=== PATIENT | male | born 1955 | race Caucasian/White ===

== ENCOUNTER 2019-06-04 10:34 | Inpatient (IN) | payer MEDICARE, MEDICAID ==
[~2019-06-04] VITALS: Ht 170.2 cm; Wt 76.0 kg
[2019-06-04] MEDS ORDERED: pantoprazole IV 80 MG in normal saline 100ml IV soln 100 ML IV ONE (13:20)
[2019-06-04] MEDS: pantoprazole 40 MG vial IV SCH ×2 (14:00→14:09)
[2019-06-04 14:26] LABS: BASOPHILS # (AUTO) 0.1 X10'3 (0-0.2); BASOPHILS % (AUTO) 0.5 % (0-1); EOSINOPHILS % (AUTO) 0.1 % (0-6); HEMATOCRIT 31.6 % (42.0-52.0); HEMOGLOBIN 10.4 g/dl (14.0-17.9); LYMPHOCYTES # (AUTO) 0.9 X10'3 (1.1-4.8); LYMPHOCYTES % (AUTO) 7.9 % (21-51); MEAN CORPUSCULAR HEMOGLOBIN 28.3 PG (27.0-31.0); MEAN CORPUSCULAR HGB CONC 32.9 g/dL (33.0-36.5); MEAN CORPUSCULAR VOLUME 85.9 FL (78-98); MEAN PLATELET VOLUME 9.9 FL (7.4-10.4); MONOCYTES # (AUTO) 0.5 X10'3 (0-0.9); MONOCYTES % (AUTO) 4.2 % (2-12); NEUTROPHILS # (AUTO) 10.4 X10'3 (1.8-7.7); NEUTROPHILS % (AUTO) 87.3 % (42-75); PLATELET COUNT 116 X10'3 (140-440); RED BLOOD COUNT 3.68 X10'6 (4.70-6.10); RED CELL DISTRIBUTION WIDTH 19.1 % (11.5-14.5); WHITE BLOOD COUNT 11.9 X10'3 (4.5-11.0)
[2019-06-04 14:42] LABS: PARTIAL THROMBOPLASTIN TIME 26 SECONDS (22-32)
[2019-06-04 14:46] LABS: ALANINE AMINOTRANSFERASE 31 U/L (12-78); ALBUMIN 3.5 G/DL (3.4-5.0); ALKALINE PHOSPHATASE 77 IU/L (46-116); ANION GAP 9 (8-16); ASPARTATE AMINO TRANSFERASE 18 U/L (10-37); BILIRUBIN,DIRECT 0.2 MG/DL (0-0.3); BILIRUBIN,TOTAL 1.3 MG/DL (0.1-1.0); BLOOD UREA NITROGEN 34 MG/DL (7-18); CALCIUM 8.7 MG/DL (8.5-10.1); CHLORIDE 108 MMOL/L (99-107); CREATININE 0.85 MG/DL (0.60-1.10); GLUCOSE 192 MG/DL (70-104); POTASSIUM 4.3 MMOL/L (3.5-5.1); SODIUM 141 MMOL/L (135-145); TOTAL CARBON DIOXIDE 24.1 MMOL/L (24-32); TOTAL PROTEIN 6.9 G/DL (6.4-8.2); eGFR 90 ML/MIN
[2019-06-04] MEDS ORDERED: UMEC1DIS IH (14:47)
[2019-06-04] MEDS ORDERED: PANT40TA4 PO (14:47)
[2019-06-04] MEDS ORDERED: CARV6.253 PO (14:47)
[2019-06-04] MEDS ORDERED: SIMV-42 PO (14:47)
[2019-06-04] MEDS ORDERED: CYCL-1 PO (14:47)
[2019-06-04] MEDS ORDERED: DOCU-329 PO (14:47)
[2019-06-04 14:53] LABS: ANISOCYTOSIS 2+; PLATELET ESTIMATE DECREASED
[2019-06-04] MEDS ORDERED: ondansetron/PF 4mg/2ml inj IV ONE (15:00)
[2019-06-04 15:20] LABS: OCCULT BLOOD STOOL POSITIVE (Neg)
[2019-06-04 15:24] LABS: CLARITY,URINE CLEAR (Clear); COLOR,URINE YELLOW (Yellow); GLUCOSE, URINE NEGATIVE (Neg); KETONES,URINE TRACE mg/dl (Neg); LEUKOCYTE ESTERASE ,URINE NEGATIVE (Neg); NITRITES, URINE NEGATIVE (Neg); OCCULT BLOOD,URINE NEGATIVE (Neg); PH,URINE 5.5 (4.8-8.0); PROTEIN,URINE NEGATIVE (Neg); UROBILINOGEN,URINE 0.2 E.U/dL (0.2-1.0)
[2019-06-04 15:27] LABS: UA COLLECTION TYPE URINAL
[2019-06-04] MEDS: morphine 4 MG/ML inj SYRINge IV PRN ×2 (15:59→17:07)
[2019-06-04] MEDS ORDERED: pantoprazole 40MG/NS 100ML BAG 100 ML IV ONE (16:00)
[2019-06-04] MEDS ORDERED: morphine 2 MG/ML inj. syringe IV PRN (16:15)
[2019-06-04] MEDS ORDERED: mag hydrox/Alum hydrox/simeth 30ml oral suspension PO PRN (16:15)
[2019-06-04] MEDS ORDERED: ondansetron/PF 4mg/2ml inj IV PRN (16:15)
[2019-06-04] MEDS ORDERED: acetaminophen 325mg tablet PO PRN (16:15)
[2019-06-04] MEDS ORDERED: magnesium hydroxide 30ml (MOM) UD suspension PO PRN (16:15)
[2019-06-04] MEDS: normal saline 1000ml 1,000 ML IV SCH (17:07)
[2019-06-04] MEDS: octreotide inj. 1,250 MCG in normal saline 250ml IV soln 250 ML IV SCH (17:07)
[2019-06-04] MEDS ORDERED: cyclobenzaprine 10mg tablet PO PRN (18:25)
[2019-06-04] MEDS ORDERED: docusate sod 250mg capsule PO PRN (18:25)
[2019-06-04] MEDS ORDERED: ipratropium 0.5 MG/2.5ML nebule IH PRN (18:35)
[2019-06-04 20:30] VITALS: BP 151/82
[2019-06-04] MEDS: carvedilol 6.25mg tablet PO SCH (21:06)
[2019-06-04] MEDS: atorvastatin 10mg tablet PO SCH (21:06)
[2019-06-04] MEDS: morphine 2 MG/ML inj. syringe IV PRN (21:44)
[2019-06-04 22:00] VITALS: BP 100/61
--- NOTE | 2019-06-04 22:44 | NUR ---
Arrived@ 1999 on PCU 3012V. Patient is pleasant and in no apparent distress. A&Ox4 and vital signs stable 151/82 HR 93, 99F, RR 18, 98% on room air. Patient is oriented to the room. MRSA swab was taken and patient was educated on it. Placed on tele 51 and educated on monitoring. Questions were encouraged and answered.
--- NOTE | 2019-06-04 22:44 | NUR ---
Patient in room PCU 3016. I have received report from WILIAN Huerta from ER and had the opportunity to ask questions and assume patient care.
[2019-06-05] VITALS (10 sets, daily range): BP systolic 101–189; BP diastolic 37–95
[2019-06-05] MEDS: normal saline 1000ml 1,000 ML IV SCH (00:53)
[2019-06-05 01:56] LABS: BASOPHILS % (AUTO) 0.9 % (0-1); EOSINOPHILS # (AUTO) 0.1 X10'3 (0-0.9); EOSINOPHILS % (AUTO) 2.8 % (0-6); HEMATOCRIT 28.7 % (42.0-52.0); HEMOGLOBIN 9.6 g/dl (14.0-17.9); LYMPHOCYTES # (AUTO) 0.9 X10'3 (1.1-4.8); LYMPHOCYTES % (AUTO) 19.9 % (21-51); MEAN CORPUSCULAR HEMOGLOBIN 28.9 PG (27.0-31.0); MEAN CORPUSCULAR HGB CONC 33.5 g/dL (33.0-36.5); MEAN CORPUSCULAR VOLUME 86.3 FL (78-98); MEAN PLATELET VOLUME 9.8 FL (7.4-10.4); MONOCYTES # (AUTO) 0.4 X10'3 (0-0.9); MONOCYTES % (AUTO) 8.2 % (2-12); NEUTROPHILS # (AUTO) 3.1 X10'3 (1.8-7.7); NEUTROPHILS % (AUTO) 68.2 % (42-75); PLATELET COUNT 62 X10'3 (140-440); RED BLOOD COUNT 3.33 X10'6 (4.70-6.10); RED CELL DISTRIBUTION WIDTH 19.1 % (11.5-14.5); WHITE BLOOD COUNT 4.6 X10'3 (4.5-11.0)
[2019-06-05 02:14] LABS: ALBUMIN 3.5 G/DL (3.4-5.0); ANION GAP 9 (8-16); BLOOD UREA NITROGEN 28 MG/DL (7-18); BUN/CREATININE RATIO 30.4 (5.4-32.0); CALCIUM 8.3 MG/DL (8.5-10.1); CHLORIDE 107 MMOL/L (99-107); CREATININE 0.92 MG/DL (0.60-1.10); GLUCOSE 130 MG/DL (70-104); POTASSIUM 3.9 MMOL/L (3.5-5.1); SODIUM 142 MMOL/L (135-145); TOTAL CARBON DIOXIDE 26.3 MMOL/L (24-32); eGFR 83 ML/MIN
[2019-06-05] MEDS: morphine 2 MG/ML inj. syringe IV PRN ×3 (02:19→22:05)
[2019-06-05 02:36] LABS: ANISOCYTOSIS 2+; PLATELET ESTIMATE DECREASED; POIKILOCYTOSIS FEW
[2019-06-05 02:37] LABS: TEAR DROP CELLS FEW
[2019-06-05] MEDS: albuterol 2.5 MG/3 ML nebule NEB PRN (02:40)
--- NOTE | 2019-06-05 06:17 | NUR ---
Problems reprioritized. Patient report given, questions answered & plan of care reviewed with WILIAN mcneil.
--- NOTE | 2019-06-05 06:22 | NUR ---
Patient in room PCU 3016. I have received report from Liana CEDENO and had the opportunity to ask questions and assume patient care.
[2019-06-05] MEDS: carvedilol 6.25mg tablet PO SCH ×2 (08:00→19:24)
[2019-06-05] MEDS: pantoprazole 40mg Tablet.DR PO SCH (08:00)
[2019-06-05 08:17] LABS: HEMATOCRIT 23.4 % (42.0-52.0); MEAN CORPUSCULAR HEMOGLOBIN 29.3 PG (27.0-31.0); MEAN CORPUSCULAR HGB CONC 34.2 g/dL (33.0-36.5); MEAN CORPUSCULAR VOLUME 85.7 FL (78-98); MEAN PLATELET VOLUME 9.1 FL (7.4-10.4); PLATELET COUNT 54 X10'3 (140-440); RED BLOOD COUNT 2.72 X10'6 (4.70-6.10); RED CELL DISTRIBUTION WIDTH 19.1 % (11.5-14.5); WHITE BLOOD COUNT 3.5 X10'3 (4.5-11.0)
[2019-06-05] MEDS: morphine 4 MG/ML inj SYRINge IV PRN ×2 (08:24→13:22)
[2019-06-05 14:29] LABS: HEMATOCRIT 22.8 % (42.0-52.0); HEMOGLOBIN 7.6 g/dl (14.0-17.9); MEAN CORPUSCULAR HEMOGLOBIN 28.6 PG (27.0-31.0); MEAN CORPUSCULAR HGB CONC 33.4 g/dL (33.0-36.5); MEAN CORPUSCULAR VOLUME 85.7 FL (78-98); MEAN PLATELET VOLUME 9.7 FL (7.4-10.4); PLATELET COUNT 59 X10'3 (140-440); RED BLOOD COUNT 2.66 X10'6 (4.70-6.10); RED CELL DISTRIBUTION WIDTH 19.1 % (11.5-14.5)
[2019-06-05] MEDS ORDERED: MIDAZolam 5mg/5ml vial ONE (15:30)
[2019-06-05] MEDS ORDERED: LIDOcaine Viscous 15ml cup ONE (15:30)
[2019-06-05] MEDS ORDERED: fentaNYL/PF 50MCG/1 ML 2ML syringe ONE (15:30)
--- NOTE | 2019-06-05 15:47 | NUR ---
PRESSURE ULCER EDUCATION: DEFINITION: A pressure ulcer is an area of skin that breaks down when you stay in one position too long. The constant pressure against the skin reduces the blood flow to that area and the affected tissue dies. CAUSES: "Being bedridden or in a wheelchair "Fragile skin "Having a chronic condition, such as diabetes or vascular disease "Inability to move certain parts of your body without assistance "Older age "Incontinence of urine or stool SYMPTOMS: "A reddened area that DOES NOT turn white when pressed on - this can be the beginning of a pressure ulcer "A blister, deep sore or a crater - these can be advanced pressure ulcers FIRST AID: "Relieve the pressure on this area "Keep the area clean and dry "Call your primary doctor if you see any of the above symptoms "DO NOT massage the area "DO NOT use a donut shaped or ring shaped pillow- these actually interfere with the blood flow and cause complications PREVENTION: "Check for pressure ulcers everyday "Change position at least every two hours to relieve pressure "Use items that help relieve pressure- pillows, sheepskin, foam padding, and powders. "Keep skin clean and dry "Eat healthy well balanced meals "Exercise daily IF YOU SEE ANY OF THESE SYMPTOMS WHILE IN THE HOSPITAL - TELL YOUR NURSE IMMEDIATELY. IF YOU SEE ANY OF THESE SYMPTOMS WHILE AT HOME OR HAVE ANY QUESTIONS OR CONCERNS ABOUT PRESSURE ULCERS - CALL YOUR PRIMARY DOCTOR IMMEDIATELY. Addendum: 06/05/19 at 1548 by Jen Iverson RN Amended: Links added.
[2019-06-05] MEDS ORDERED: MORP30CA16 PO (16:17)
[2019-06-05] MEDS ORDERED: METH5TAB2 PO (16:17)
[2019-06-05] MEDS ORDERED: OXYC5CAP19 PO (16:18)
[2019-06-05] MEDS ORDERED: oxyCODONE IR 5mg (immed. release) tablet PO PRN (19:05)
[2019-06-05] MEDS: morphine ER 30mg tablet PO SCH (19:24)
[2019-06-05] MEDS: atorvastatin 10mg tablet PO SCH (20:28)
[2019-06-05 21:18] LABS: HEMATOCRIT 23.5 % (42.0-52.0); HEMOGLOBIN 7.9 g/dl (14.0-17.9); MEAN CORPUSCULAR HEMOGLOBIN 29.1 PG (27.0-31.0); MEAN CORPUSCULAR HGB CONC 33.5 g/dL (33.0-36.5); MEAN PLATELET VOLUME 9.4 FL (7.4-10.4); PLATELET COUNT 57 X10'3 (140-440); RED BLOOD COUNT 2.71 X10'6 (4.70-6.10); RED CELL DISTRIBUTION WIDTH 18.8 % (11.5-14.5); WHITE BLOOD COUNT 3.6 X10'3 (4.5-11.0)
[2019-06-06 02:00] VITALS: BP 115/55
[2019-06-06] MEDS: morphine 2 MG/ML inj. syringe IV PRN ×3 (02:06→11:23)
[2019-06-06] MEDS: octreotide inj. 1,250 MCG in normal saline 250ml IV soln 250 ML IV SCH (02:11)
[2019-06-06] MEDS: albuterol 2.5 MG/3 ML nebule NEB PRN (02:50)
--- NOTE | 2019-06-06 06:14 | NUR ---
Problems reprioritized. Patient report given, questions answered & plan of care reviewed with Canelo CEDENO. Patient stable at time of transfer of care.
[2019-06-06 06:15] LABS: BASOPHILS % (AUTO) 0.6 % (0-1); EOSINOPHILS # (AUTO) 0.2 X10'3 (0-0.9); EOSINOPHILS % (AUTO) 4.1 % (0-6); HEMATOCRIT 24.2 % (42.0-52.0); HEMOGLOBIN 8.2 g/dl (14.0-17.9); LYMPHOCYTES # (AUTO) 0.7 X10'3 (1.1-4.8); LYMPHOCYTES % (AUTO) 17.7 % (21-51); MEAN CORPUSCULAR HEMOGLOBIN 29.2 PG (27.0-31.0); MEAN CORPUSCULAR HGB CONC 33.9 g/dL (33.0-36.5); MEAN CORPUSCULAR VOLUME 86.1 FL (78-98); MEAN PLATELET VOLUME 9.3 FL (7.4-10.4); MONOCYTES # (AUTO) 0.3 X10'3 (0-0.9); MONOCYTES % (AUTO) 8.5 % (2-12); NEUTROPHILS # (AUTO) 2.7 X10'3 (1.8-7.7); NEUTROPHILS % (AUTO) 69.1 % (42-75); PLATELET COUNT 62 X10'3 (140-440); RED BLOOD COUNT 2.81 X10'6 (4.70-6.10); RED CELL DISTRIBUTION WIDTH 18.8 % (11.5-14.5); WHITE BLOOD COUNT 3.9 X10'3 (4.5-11.0)
[2019-06-06 06:22] LABS: ALBUMIN 3.3 G/DL (3.4-5.0); ANION GAP 7 (8-16); BLOOD UREA NITROGEN 19 MG/DL (7-18); BUN/CREATININE RATIO 21.8 (5.4-32.0); CALCIUM 7.7 MG/DL (8.5-10.1); CHLORIDE 108 MMOL/L (99-107); CREATININE 0.87 MG/DL (0.60-1.10); GLUCOSE 114 MG/DL (70-104); POTASSIUM 3.8 MMOL/L (3.5-5.1); SODIUM 143 MMOL/L (135-145); eGFR 88 ML/MIN
--- NOTE | 2019-06-06 06:48 | NUR ---
Patient in room PCU 3016. I have received report from WILIAN Rainey and had the opportunity to ask questions and assume patient care. Patient asleep in bed and in no acute distress.
[2019-06-06 07:00] VITALS: BP 139/63
[2019-06-06 08:44] LABS: PLATELET ESTIMATE DECREASED; POLYCHROMASIA 1+
[2019-06-06 08:45] LABS: ANISOCYTOSIS 2+; ELLIPTOCYTES 1+; HYPOCHROMASIA 1+; SCHISTOCYTES FEW; TEAR DROP CELLS FEW
--- NOTE | 2019-06-06 09:10 | NUR ---
Orders to stop sandostatin IV and advance diet to full liquid diet per Dr. Cerrato.
[2019-06-06] MEDS: morphine ER 30mg tablet PO SCH (09:14)
[2019-06-06] MEDS: pantoprazole 40mg Tablet.DR PO SCH (09:14)
[2019-06-06] MEDS: carvedilol 6.25mg tablet PO SCH (09:14)
[2019-06-06] MEDS ORDERED: FLU VACC QS2019-20 36MOS UP/PF 60 MCG/0.5 ML SYRINGE IMVAC ONE (10:00)
[2019-06-06] MEDS ORDERED: pneumococcal 23-VAL P-sac vacc 25 mcg/0.5ml vial IMVAC ONE (10:00)
[2019-06-06 11:00] VITALS: BP 124/55
--- NOTE | 2019-06-06 13:18 | NUR ---
Patient refused flu and pneumonia vaccine before discharge.
--- NOTE | 2019-06-06 14:50 | NUR ---
Patient stable for discharge per MD orders. All discharge instructions reviewed with patient and all questions answered. No new prescriptions were prescribed for the patient. PIV discontinued and cannula intact. Wrist band cut off. engine monitor discontinued. Belongings collected and sent with patient. Patient picked up by daughter and was wheeled to the lobby, and left by private vehicle.
--- NOTE | 2019-06-11 10:02 | NUR ---
Case Management DC follow up: spoke w/pt via telephone. denies abd pain, bleeding, abnormal symptoms, SOB, NV, or dizziness at this time. States he is feeling a little better every day.Pain under control. Stated he has follow up w/Dr Urrutia, who will call pt to confirm date of appt. Verbalized understanding of pain medications and why prescribed. pt reported that he felt some of the procedure as he was not "put out" and felt the procedure and stated "it hurt", but he is ok now, it is over. He had no further questions at this time
== END 2019-06-06 14:50 | disposition home or self-care (01) | DRG 369 ==
LOC: ER 10:34 → ED HOLD 16:14 → PCU 3S 20:44
PROVIDERS: ADMIT Family Medicine; ATTEND Family Medicine
PROC: 06L38CZ Occlusion of Esophageal Vein with Extraluminal Device, Via Natural or Artificial Opening Endoscopic (ICD-10-PCS; principal; 2019-06-05)
DX: I85.01 Esophageal varices with bleeding (principal); D62 Acute posthemorrhagic anemia; K76.6 Portal hypertension; F17.210 Nicotine dependence, cigarettes, uncomplicated; M54.9 Dorsalgia, unspecified; G89.4 Chronic pain syndrome; I10 Essential (primary) hypertension; I25.10 Atherosclerotic heart disease of native coronary artery without angina pectoris; K31.89 Other diseases of stomach and duodenum; K74.60 Unspecified cirrhosis of liver; Z28.21 Immunization not carried out because of patient refusal; Z88.0 Allergy status to penicillin
CPT/HCPCS: 36415; 43244; 71045; 80048; 80053; 81003; 82248; 82272; 84484; 85025; 85027; 85610; 85730; 86885; 86900; 86901; 87081; 93005; 94640; 94760; 96374; 96375; 96376; 99152; 99285; A4620; C9113; G0378; J2250; J2270; J2354; J2405; J3010; J7030; J7040; J7050

== ENCOUNTER 2022-11-21 10:23 | Inpatient (IN) | payer MEDICARE, MEDICAID ==
[~2022-11-21] VITALS: Ht 170.2 cm; Wt 69.5 kg
[~2022-11-21 10:23] MED LIST: BUDE10.2 PO; CARV6.253 PO; CYCL-1 PO; FERR325T29 PO; LACT10SO7 PO; METF-516 PO; MORP30TA60 PO; PANT-47 PO; PREG75CA75 PO; SIMV-42 PO
[2022-11-21] MEDS ORDERED: ondansetron/PF 4mg/2ml inj IV ONE (12:45)
[2022-11-21] MEDS: morphine 4 MG/ML inj SYRINge IV PRN ×2 (13:08→19:12)
[2022-11-21 13:13] LABS: BASOPHILS % (AUTO) 0.1 % (0-1); EOSINOPHILS # (AUTO) 0.1 X10'3 (0-0.9); EOSINOPHILS % (AUTO) 2.1 % (0-6); HEMATOCRIT 40.8 % (42.0-52.0); HEMOGLOBIN 14.1 g/dl (14.0-17.9); LYMPHOCYTES # (AUTO) 0.6 X10'3 (1.1-4.8); MEAN CORPUSCULAR HEMOGLOBIN 32.2 PG (27.0-31.0); MEAN CORPUSCULAR HGB CONC 34.6 g/dL (33.0-36.5); MEAN PLATELET VOLUME 8.8 FL (7.4-10.4); MONOCYTES # (AUTO) 0.6 X10'3 (0-0.9); MONOCYTES % (AUTO) 10.1 % (2-12); NEUTROPHILS % (AUTO) 78.7 % (42-75); PLATELET COUNT 72 X10'3 (140-440); RED BLOOD COUNT 4.38 X10'6 (4.70-6.10); RED CELL DISTRIBUTION WIDTH 14.1 % (11.5-14.5); WHITE BLOOD COUNT 6.3 X10'3 (4.5-11.0)
[2022-11-21 13:32] LABS: ALANINE AMINOTRANSFERASE 27 U/L (12-78); ALBUMIN/GLOBULIN RATIO 0.7 (1.1-1.5); ALKALINE PHOSPHATASE 114 IU/L (46-116); ANION GAP 7 (8-16); ASPARTATE AMINO TRANSFERASE 30 U/L (10-37); BILIRUBIN,TOTAL 3.3 MG/DL (0.1-1.0); BLOOD UREA NITROGEN 9 MG/DL (7-18); CALCIUM 8.8 MG/DL (8.5-10.1); CHLORIDE 104 MMOL/L (99-107); CREATININE 0.82 MG/DL (0.60-1.10); GLUCOSE 162 MG/DL (70-104); POTASSIUM 3.8 MMOL/L (3.5-5.1); SODIUM 136 MMOL/L (135-145); TOTAL CARBON DIOXIDE 24.9 MMOL/L (24-32); TOTAL PROTEIN 7.1 G/DL (6.4-8.2); eGFR > 90 ML/MIN
[2022-11-21 13:42] LABS: APTT 33 SECONDS (22-32)
[2022-11-21] MEDS ORDERED: mag hydrox/Alum hydrox/simeth 30ml oral suspension PO PRN (14:15)
[2022-11-21] MEDS ORDERED: magnesium hydroxide 30ml (MOM) UD suspension PO PRN (14:15)
[2022-11-21] MEDS ORDERED: potassium Cl 40MEQ/1/2NS 520ml 520 ML IV PRN (14:15)
[2022-11-21] MEDS ORDERED: acetaminophen 325mg tablet PO PRN (14:15)
[2022-11-21] MEDS ORDERED: HYDROmorphone inj. 0.5 MG/0.5 ML DISP.SYRIN IV PRN (14:15)
[2022-11-21] MEDS ORDERED: magnesium Cl slow-release 64mg tablet PO PRN (14:15)
[2022-11-21] MEDS ORDERED: magnesium 4gm in 100ml NS 100 ML IV PRN (14:15)
[2022-11-21] MEDS ORDERED: potassium Cl 20 mEq SR tablet PO PRN ×2 (14:15)
[2022-11-21] MEDS ORDERED: magnesium 2GM in 50ml NS 50 ML IV PRN (14:15)
[2022-11-21] MEDS ORDERED: ondansetron/PF 4mg/2ml inj IV PRN (14:15)
[2022-11-21 14:33] LABS: CLARITY,URINE CLEAR (Clear); COLOR,URINE YELLOW (Yellow); GLUCOSE, URINE NEGATIVE (Neg); KETONES,URINE NEGATIVE (Neg); LEUKOCYTE ESTERASE ,URINE NEGATIVE (Neg); NITRITES, URINE NEGATIVE (Neg); OCCULT BLOOD,URINE NEGATIVE (Neg); PH,URINE 6.5 (4.8-8.0); PROTEIN,URINE NEGATIVE (Neg)
[2022-11-21 14:37] LABS: UA COLLECTION TYPE CLN CATCH MIDSTREAM
[2022-11-21] MEDS: normal saline 1000ml 1,000 ML IV SCH (14:43)
[2022-11-21] MEDS ORDERED: FURO20TA4 PO (15:13)
[2022-11-21] MEDS ORDERED: SPIR50TA5 PO (15:13)
[2022-11-21] MEDS ORDERED: LACT10SO3 PO (15:13)
[2022-11-21] MEDS ORDERED: VITA400T10 PO (15:16)
--- NOTE | 2022-11-21 17:23 | NUR ---
patient placed on an ortho bed with a trapeze
[2022-11-21] MEDS: K and/or MAG REPLACEMENT MC SCH (20:00)
[2022-11-21 20:10] VITALS: BP 141/59; PULSE 71; RESP 16; TEMP 98.7; O2SAT 95
[2022-11-21 22:00] VITALS: PULSE 63; RESP 16; TEMP 98.2; O2SAT 95
[2022-11-21] MEDS: carvedilol 6.25mg tablet PO SCH (23:59)
[2022-11-21] MEDS: pantoprazole 40mg Tablet.DR PO SCH (23:59)
[2022-11-22] VITALS (18 sets, daily range): BP systolic 107–168; BP diastolic 47–77; PULSE 56–74; RESP 10–18; TEMP 98–98.9; O2SAT 91–100
[2022-11-22] MEDS ORDERED: morphine ER 30mg tablet PO SCH
[2022-11-22] MEDS: morphine ER 15mg tablet PO SCH ×4 (00:05→23:52)
[2022-11-22] MEDS: atorvastatin 10mg tablet PO SCH ×2 (00:20→21:42)
[2022-11-22] MEDS: spironolactone 50 MG tablet PO SCH ×2 (00:20→21:42)
[2022-11-22] MEDS: normal saline 1000ml 1,000 ML IV SCH ×3 (02:56→05:14)
[2022-11-22] MEDS: HYDROmorphone 1 mg/ml syringe IV PRN ×3 (05:21→21:40)
[2022-11-22 06:38] LABS: BASOPHILS % (AUTO) 0.4 % (0-1); EOSINOPHILS # (AUTO) 0.2 X10'3 (0-0.9); EOSINOPHILS % (AUTO) 3.9 % (0-6); HEMATOCRIT 37.5 % (42.0-52.0); HEMOGLOBIN 12.9 g/dl (14.0-17.9); LYMPHOCYTES # (AUTO) 0.7 X10'3 (1.1-4.8); LYMPHOCYTES % (AUTO) 13.2 % (21-51); MEAN CORPUSCULAR HEMOGLOBIN 31.7 PG (27.0-31.0); MEAN CORPUSCULAR HGB CONC 34.3 g/dL (33.0-36.5); MEAN CORPUSCULAR VOLUME 92.2 FL (78-98); MEAN PLATELET VOLUME 8.5 FL (7.4-10.4); MONOCYTES # (AUTO) 0.5 X10'3 (0-0.9); MONOCYTES % (AUTO) 9.9 % (2-12); NEUTROPHILS # (AUTO) 3.7 X10'3 (1.8-7.7); NEUTROPHILS % (AUTO) 72.6 % (42-75); RED BLOOD COUNT 4.07 X10'6 (4.70-6.10); RED CELL DISTRIBUTION WIDTH 13.7 % (11.5-14.5); WHITE BLOOD COUNT 5.1 X10'3 (4.5-11.0)
[2022-11-22 06:53] LABS: ALBUMIN 2.3 G/DL (3.4-5.0); ANION GAP 6 (8-16); BLOOD UREA NITROGEN 9 MG/DL (7-18); BUN/CREATININE RATIO 12.9 (10.0-20.0); CALCIUM 8.1 MG/DL (8.5-10.1); CHLORIDE 105 MMOL/L (99-107); GLUCOSE 114 MG/DL (70-104); MAGNESIUM 1.7 MG/DL (1.5-2.4); POTASSIUM 4.1 MMOL/L (3.5-5.1); SODIUM 135 MMOL/L (135-145); eGFR > 90 ML/MIN
--- NOTE | 2022-11-22 07:07 | NUR ---
Patient in room ORTHO 4013. I have received report from August and had the opportunity to ask questions and assume patient care.
[2022-11-22 07:13] LABS: HEMOGLOBIN A1C 6.1 % (4.5-6.2)
[2022-11-22 07:14] LABS: PLATELET COUNT 50 X10'3 (140-440)
--- NOTE | 2022-11-22 07:25 | NUR ---
Message: Alfie Arredondo in 1701C - Critical platelets 50 -Tereza [phone]
[2022-11-22] MEDS ORDERED: ringers solution, lacted 1,000 ML IV SCH (07:40)
[2022-11-22] MEDS ORDERED: morphine 4 MG/ML inj SYRINge IV PRN (07:40)
[2022-11-22] MEDS ORDERED: ondansetron/PF 4mg/2ml inj IV PRN (07:40)
[2022-11-22] MEDS ORDERED: morphine 2 MG/ML inj. syringe IV PRN (07:40)
[2022-11-22] MEDS ORDERED: meperidine/PF 25mg/ml syringe IV PRN ×3 (07:40)
[2022-11-22] MEDS ORDERED: proCHLORperazine 10 MG/2 ml inj IV PRN (07:40)
[2022-11-22] MEDS: K and/or MAG REPLACEMENT MC SCH ×2 (08:00→20:00)
[2022-11-22] MEDS: vitamin E 400 unit capsule PO SCH (08:00)
[2022-11-22] MEDS: docusate sod 100mg capsule PO SCH ×3 (08:00→21:43)
[2022-11-22] MEDS ORDERED: enoxaparin 40mg/0.4ml syringe SUBCUT SCH (08:00)
[2022-11-22] MEDS: lactulose 20gm/30ml cup PO SCH ×5 (08:00→21:39)
[2022-11-22] MEDS: pantoprazole 40mg Tablet.DR PO SCH ×2 (09:06→21:42)
[2022-11-22] MEDS: carvedilol 6.25mg tablet PO SCH ×2 (09:06→21:42)
--- NOTE | 2022-11-22 12:42 | NUR ---
Message: Alfie Arredondo in [id number] - Pt's platelets are 50 and pt is supposed to have surgery at 1500. -Tereza [phone]
--- NOTE | 2022-11-22 12:58 | NUR ---
Message: 2nd page re: Alfie Arredondo in [id number] - platelets are 50. Pt is supposed to have surgery at 1500. -Tereza [phone]
--- NOTE | 2022-11-22 14:24 | NUR ---
PRESSURE ULCER EDUCATION: DEFINITION: A pressure ulcer is an area of skin that breaks down when you stay in one position too long. The constant pressure against the skin reduces the blood flow to that area and the affected tissue dies. CAUSES: "Being bedridden or in a wheelchair "Fragile skin "Having a chronic condition, such as diabetes or vascular disease "Inability to move certain parts of your body without assistance "Older age "Incontinence of urine or stool SYMPTOMS: "A reddened area that DOES NOT turn white when pressed on - this can be the beginning of a pressure ulcer "A blister, deep sore or a crater - these can be advanced pressure ulcers FIRST AID: "Relieve the pressure on this area "Keep the area clean and dry "Call your primary doctor if you see any of the above symptoms "DO NOT massage the area "DO NOT use a donut shaped or ring shaped pillow- these actually interfere with the blood flow and cause complications PREVENTION: "Check for pressure ulcers everyday "Change position at least every two hours to relieve pressure "Use items that help relieve pressure- pillows, sheepskin, foam padding, and powders. "Keep skin clean and dry "Eat healthy well balanced meals "Exercise daily IF YOU SEE ANY OF THESE SYMPTOMS WHILE IN THE HOSPITAL - TELL YOUR NURSE IMMEDIATELY. IF YOU SEE ANY OF THESE SYMPTOMS WHILE AT HOME OR HAVE ANY QUESTIONS OR CONCERNS ABOUT PRESSURE ULCERS - CALL YOUR PRIMARY DOCTOR IMMEDIATELY. Addendum: 11/22/22 at 1424 by Migel Cheng RN Amended: Links added.
[2022-11-22] MEDS ORDERED: vancomycin 1,000mg inj ONE (14:49)
[2022-11-22] MEDS ORDERED: BUPIVAcaine HCl 0.25%/EPInephrine 1:200,000 inj. 10 ML VIAL ONE (14:50)
[2022-11-22] MEDS ORDERED: BUPIVAcaine 0.5% inj/PF 30 ML ONE (14:50)
[2022-11-22] MEDS ORDERED: LIDOcaine 2% (20mg/ml) 5ml vial ONE (15:25)
[2022-11-22] MEDS ORDERED: sevoflurane 250ml liquid IH ONE (15:25)
[2022-11-22] MEDS ORDERED: fentaNYL /PF 50mcg/ml 5ml ampule ONE (15:43)
[2022-11-22] MEDS ORDERED: midazolam 1 mg/ML 2ml injection ONE (15:43)
[2022-11-22] MEDS ORDERED: tranexamic acid 100mg/ml inj. ONE (16:12)
[2022-11-22] MEDS ORDERED: ceFAZolin 1000mg inj ONE ×2 (16:15)
[2022-11-22] MEDS ORDERED: bupivacaine 0.25%/epinephrine 1:200,000 inj (contains preserv. MDV) IJ ONE (16:36)
[2022-11-22] MEDS ORDERED: albumin (Human) 5% 250ml 250 ML IV ONE (16:38)
[2022-11-22] MEDS ORDERED: propofol inj 20 ML IV ONE (16:43)
[2022-11-22] MEDS ORDERED: rocuronium 10mg/ml inj IV ONE (16:43)
--- NOTE | 2022-11-22 16:56 | NUR ---
Received from OR via ORTHO BED WITH [facility] , accompanied by Anesthesiologist MARIA LUISA and report given by Anesthesiolgist. PATIENT WITH 20G PIV IN LEFT UE RUNNING LR AT 100. MEDICATED FOR PAIN UPON ARRIVAL AND WILL CONTINUE TO ASSESS AND TREAT. RIGHT HIP DRESSING IS CDI AND VSS. PATIENT WITH + DP PRESENT, MARKED SITE. Addendum: 11/22/22 at 1710 by Kenneth Hernandez RN, RN Amended: Links added.
--- NOTE | 2022-11-22 17:27 | NUR ---
PATIENT STATES THAT "HIS PAIN IS NEVER BELOW AND 8 "AND THAT HE "LIVES HERE". MEDICATED AGAIN Addendum: 11/22/22 at 1729 by Kenneth Hernandez RN, RN Amended: Links added.
--- NOTE | 2022-11-22 17:46 | NUR ---
REPORT GIVEN AND ALL QUESTIONS ANSWERED. PATIENT TRANSFERRED TO SURG/ORTHO . LABELED BELONGINGS PRESENT AND DELIVERED TO ROOM. RN PRESENT TO ASSESS PATIENT. ALL CRITERIA FOR TRANSFER BACK TO THE FLOOR HAS BEEN ACHIEVED. VSS. PAIN AT A TOLERABLE LEVEL. BED LOW, CALL LIGHT PRESENT AND 2 RAILS DOWN. RN AWARE THAT PATIENT HAS ARRIVED. TO ACCEPT CARE OF PATIENT. Addendum: 11/22/22 at 1754 by Kenneth Hernandez RN, RN Amended: Links added.
--- NOTE | 2022-11-22 20:34 | NUR ---
Patient in room ORTHO 4013. I have received report from rhiannon sahu and had the opportunity to ask questions and assume patient care.
[2022-11-22] MEDS: furosemide 20MG tablet PO SCH ×2 (21:43)
[2022-11-22] MEDS: cyclobenzaprine 10mg tablet PO PRN (21:59)
[2022-11-22] MEDS: cefazolin 2gm/D5W 100mL 100 ML IV SCH (23:52)
[2022-11-23] VITALS (7 sets, daily range): BP systolic 95–140; BP diastolic 32–54; PULSE 57–69; RESP 14–20; TEMP 97.6–99.4; O2SAT 93–98
[2022-11-23] MEDS: normal saline 1000ml 1,000 ML IV SCH ×3 (00:02→22:14)
[2022-11-23] MEDS: HYDROmorphone 1 mg/ml syringe IV PRN (04:08)
--- NOTE | 2022-11-23 04:57 | NUR ---
medicated for pain q4hrly with relief. ice therapy to right hip effective. Dressing CDI.
[2022-11-23 06:28] LABS: BASOPHILS % (AUTO) 0.3 % (0-1); EOSINOPHILS # (AUTO) 0.3 X10'3 (0-0.9); EOSINOPHILS % (AUTO) 4.4 % (0-6); HEMATOCRIT 32.7 % (42.0-52.0); HEMOGLOBIN 11.4 g/dl (14.0-17.9); LYMPHOCYTES # (AUTO) 0.6 X10'3 (1.1-4.8); LYMPHOCYTES % (AUTO) 9.8 % (21-51); MEAN CORPUSCULAR VOLUME 91.5 FL (78-98); MEAN PLATELET VOLUME 8.6 FL (7.4-10.4); MONOCYTES # (AUTO) 0.7 X10'3 (0-0.9); MONOCYTES % (AUTO) 11.3 % (2-12); NEUTROPHILS # (AUTO) 4.9 X10'3 (1.8-7.7); NEUTROPHILS % (AUTO) 74.2 % (42-75); PLATELET COUNT 68 X10'3 (140-440); RED BLOOD COUNT 3.57 X10'6 (4.70-6.10); RED CELL DISTRIBUTION WIDTH 13.7 % (11.5-14.5); WHITE BLOOD COUNT 6.6 X10'3 (4.5-11.0)
--- NOTE | 2022-11-23 06:36 | NUR ---
Problems reprioritized. Patient report given, questions answered & plan of care reviewed with Tereza CEDENO.
[2022-11-23 06:45] LABS: ALBUMIN 2.3 G/DL (3.4-5.0); ANION GAP 6 (8-16); BLOOD UREA NITROGEN 8 MG/DL (7-18); BUN/CREATININE RATIO 11.6 (10.0-20.0); CALCIUM 7.7 MG/DL (8.5-10.1); CHLORIDE 103 MMOL/L (99-107); CREATININE 0.69 MG/DL (0.60-1.10); GLUCOSE 169 MG/DL (70-104); MAGNESIUM 1.7 MG/DL (1.5-2.4); POTASSIUM 3.8 MMOL/L (3.5-5.1); SODIUM 133 MMOL/L (135-145); TOTAL CARBON DIOXIDE 24.4 MMOL/L (24-32); eGFR > 90 ML/MIN
--- NOTE | 2022-11-23 06:53 | NUR ---
Patient in room ORTHO 4013. I have received report from Mar and had the opportunity to ask questions and assume patient care.
[2022-11-23] MEDS: K and/or MAG REPLACEMENT MC SCH ×2 (06:55→20:00)
[2022-11-23] MEDS: docusate sod 100mg capsule PO SCH ×3 (08:00→22:02)
[2022-11-23] MEDS: carvedilol 6.25mg tablet PO SCH ×2 (08:02→21:56)
[2022-11-23] MEDS: vitamin E 400 unit capsule PO SCH (08:02)
[2022-11-23] MEDS: pantoprazole 40mg Tablet.DR PO SCH ×2 (08:02→21:49)
[2022-11-23] MEDS: morphine ER 15mg tablet PO SCH ×2 (08:02→16:46)
[2022-11-23] MEDS: lactulose 20gm/30ml cup PO SCH ×4 (08:03→21:50)
[2022-11-23] MEDS: cefazolin 2gm/D5W 100mL 100 ML IV SCH ×2 (09:16→16:45)
[2022-11-23] MEDS: cyclobenzaprine 10mg tablet PO PRN (09:21)
--- NOTE | 2022-11-23 09:25 | NUR ---
Message: Alfie Arerdondo in [id number] - Platelets are 68. Do you still want me to give Lovenox? -Tereza [phone]
[2022-11-23] MEDS ORDERED: ketorolac tromethamine 15mg/ml inj. IV SCH ×2 (12:35→14:00)
--- NOTE | 2022-11-23 12:58 | NUR ---
Message: Alfie Arreodndo in 0000P - Pt is diabetic. Do you want him on protocol? -Tereza [phone]
[2022-11-23] MEDS ORDERED: metoclopramide 5 mg/ml inj IV SCH (14:00)
--- NOTE | 2022-11-23 17:26 | NUR ---
Message: Alfie Arredondo in 1715O - blood sugars in 180's, 190's. Do you want hyperglycemic protocol? -Tereza [phone]
--- NOTE | 2022-11-23 18:42 | NUR ---
Problems reprioritized. Patient report given, questions answered & plan of care reviewed with Mega.
[2022-11-23] MEDS: atorvastatin 10mg tablet PO SCH (21:49)
[2022-11-23] MEDS: furosemide 20MG tablet PO SCH (21:55)
[2022-11-23] MEDS: spironolactone 50 MG tablet PO SCH (21:55)
[2022-11-24] MEDS: morphine ER 15mg tablet PO SCH ×2 (00:16→08:09)
[2022-11-24 02:03] VITALS: BP 114/32; PULSE 61; RESP 18; TEMP 98.4; O2SAT 98
[2022-11-24 06:30] VITALS: BP 112/54; PULSE 64; RESP 15; TEMP 98.7; O2SAT 93
--- NOTE | 2022-11-24 06:30 | NUR ---
reported to days. noted pt resting w/o distress. noted pt has chronic pain - did not premedicate for PT - can use dilaudid at time of PT if needed.
[2022-11-24 07:18] LABS: BASOPHILS % (AUTO) 0.3 % (0-1); EOSINOPHILS # (AUTO) 0.3 X10'3 (0-0.9); EOSINOPHILS % (AUTO) 5.7 % (0-6); HEMATOCRIT 28.1 % (42.0-52.0); HEMOGLOBIN 9.9 g/dl (14.0-17.9); LYMPHOCYTES # (AUTO) 0.7 X10'3 (1.1-4.8); LYMPHOCYTES % (AUTO) 14.9 % (21-51); MEAN CORPUSCULAR HEMOGLOBIN 32.2 PG (27.0-31.0); MEAN CORPUSCULAR HGB CONC 35.2 g/dL (33.0-36.5); MEAN CORPUSCULAR VOLUME 91.6 FL (78-98); MEAN PLATELET VOLUME 8.8 FL (7.4-10.4); MONOCYTES # (AUTO) 0.5 X10'3 (0-0.9); MONOCYTES % (AUTO) 11.7 % (2-12); NEUTROPHILS # (AUTO) 3.1 X10'3 (1.8-7.7); NEUTROPHILS % (AUTO) 67.4 % (42-75); PLATELET COUNT 59 X10'3 (140-440); RED BLOOD COUNT 3.07 X10'6 (4.70-6.10); RED CELL DISTRIBUTION WIDTH 13.6 % (11.5-14.5); WHITE BLOOD COUNT 4.5 X10'3 (4.5-11.0)
[2022-11-24 07:29] LABS: ALBUMIN 2.1 G/DL (3.4-5.0); ANION GAP 5 (8-16); BLOOD UREA NITROGEN 9 MG/DL (7-18); BUN/CREATININE RATIO 11.1 (10.0-20.0); CALCIUM 7.9 MG/DL (8.5-10.1); CHLORIDE 102 MMOL/L (99-107); CREATININE 0.81 MG/DL (0.60-1.10); GLUCOSE 171 MG/DL (70-104); MAGNESIUM 1.6 MG/DL (1.5-2.4); POTASSIUM 3.9 MMOL/L (3.5-5.1); SODIUM 133 MMOL/L (135-145); TOTAL CARBON DIOXIDE 26.4 MMOL/L (24-32); eGFR > 90 ML/MIN
[2022-11-24 08:00] VITALS: RESP 64; O2SAT 93
[2022-11-24] MEDS: K and/or MAG REPLACEMENT MC SCH (08:00)
[2022-11-24] MEDS: docusate sod 100mg capsule PO SCH (08:08)
[2022-11-24] MEDS: vitamin E 400 unit capsule PO SCH (08:08)
[2022-11-24] MEDS: pantoprazole 40mg Tablet.DR PO SCH (08:08)
[2022-11-24] MEDS: lactulose 20gm/30ml cup PO SCH ×2 (08:08→14:15)
[2022-11-24] MEDS: carvedilol 6.25mg tablet PO SCH (08:09)
[2022-11-24 10:22] VITALS: BP 116/60; PULSE 71; RESP 16; TEMP 98.6; O2SAT 93
--- NOTE | 2022-11-24 16:06 | NUR ---
Pt d/c'd home with family. Pt transported in w/c to daughter's vehicle. Pt 2 person transfer. Pt left in stable condition with all belongings except eye glasses.
== END 2022-11-24 15:40 | disposition home health service (06) | DRG 481 ==
LOC: ER 10:23 → ED HOLD 14:18 → EDBEDREQ 18:42 → ORTHO 4S 20:00
PROVIDERS: ADMIT Family Medicine; ATTEND Family Medicine
PROC: 30233R1 Transfusion of Nonautologous Platelets into Peripheral Vein, Percutaneous Approach (ICD-10-PCS; 2022-11-22)
PROC: 0QS606Z Reposition Right Upper Femur with Intramedullary Internal Fixation Device, Open Approach (ICD-10-PCS; principal; 2022-11-22 15:25)
DX: S72.141A Displaced intertrochanteric fracture of right femur, initial encounter for closed fracture (principal); R71.0 Precipitous drop in hematocrit; D69.6 Thrombocytopenia, unspecified; Z20.822 Contact with and (suspected) exposure to COVID-19; E11.9 Type 2 diabetes mellitus without complications; I10 Essential (primary) hypertension; I25.10 Atherosclerotic heart disease of native coronary artery without angina pectoris; K74.60 Unspecified cirrhosis of liver; G89.29 Other chronic pain; M54.9 Dorsalgia, unspecified; K72.10 Chronic hepatic failure without coma; W18.39XA Other fall on same level, initial encounter; Z79.899 Other long term (current) drug therapy; Z79.84 Long term (current) use of oral hypoglycemic drugs; Z90.49 Acquired absence of other specified parts of digestive tract; Z88.0 Allergy status to penicillin; Y93.89 Activity, other specified; Y92.89 Other specified places as the place of occurrence of the external cause; Y99.8 Other external cause status
CPT/HCPCS: 36415; 36430; 70450; 71045; 72125; 72192; 73080; 73502; 76000; 80048; 80053; 81003; 82948; 83036; 83735; 85025; 85610; 85730; 86885; 86900; 86901; 87081; 87811; 93005; 97110; 97116; 97162; 97530; 99285; A4215; A4615; A4618; A6222; A6223; A6258; A6446; A6449; A7000; C1713; C1769; G0378; J0690; J1170; J1885; J2250; J2270; J2405; J2704; J3010; J3370; J3490; J7030; J7040; P9035; P9045; S0020

== ENCOUNTER 2022-12-08 17:25 | Emergency (ER) | payer MEDICARE, MEDICAID ==
[~2022-12-08] VITALS: Ht 170.2 cm; Wt 74.0 kg
[~2022-12-08 17:25] MED LIST changes: -BUDE10.2 PO; -FERR325T29 PO; +FURO20TA4 PO; +LACT10SO3 PO; -LACT10SO7 PO; -PREG75CA75 PO; +SPIR50TA5 PO; +VITA400T10 PO
[2022-12-08 17:39] VITALS: BP 150/63
[2022-12-08] MEDS ORDERED: MORP30TA60 PO (19:55)
== END 2022-12-08 20:12 | disposition home or self-care (01) ==
LOC: ER 17:26
DX: Z76.0 Encounter for issue of repeat prescription (principal); I10 Essential (primary) hypertension; Z88.0 Allergy status to penicillin
CPT/HCPCS: 99281